=== PATIENT | female | born 1995 | race Caucasian/White ===

== ENCOUNTER 2018-09-12 12:38 | Day surgery (SDC) | payer OTHER ==
[2018-09-12] MEDS ORDERED: FENTAnyl 50 MCG/ML VIAL (14:44)
[2018-09-12] MEDS ORDERED: MIDAZOLAM 1 MG/ML 2 ML INJ ×2 (14:45)
== END 2018-09-12 16:34 | disposition home or self-care (01) ==
LOC: GIL 12:38
DX: K92.1 Melena (principal); K64.4 Residual hemorrhoidal skin tags; K64.8 Other hemorrhoids
CPT/HCPCS: 45378; 84703